=== PATIENT | male | born 1985 | race Hispanic/Latino ===

== ENCOUNTER → 2016-11-25 | Outpatient (CLI) | payer OTHER ==
--- NOTE | 2016-11-25 13:17 | DI ---
LUMBAR SPINE SERIES, 11/25/2016 11:45 AM: Clinical History: Sciatica. Previous Exam: None at this facility. 4 routine upright views and upright lateral flexion and extension views are submitted. The vertebral bodies are of normal height and size. The disc spaces are normal. The pedicles and posterior elements are unremarkable. Both SI joints are normal. Reading: Normal lumbar spine series.
--- NOTE | 2016-11-25 13:23 | DI ---
MRI LUMBAR SPINE SCAN WITHOUT IV CONTRAST, 11/25/2016 11:44 AM: Clinical History: Sciatica. Previous Exam: None. Technique: Sagittal and axial T2 weighted; sagittal T1 weighted and T2 STIR; and axial PD. The vertebral bodies are of normal height and size. There is disc space narrowing at L5-S1 and the re maining lumbar disc spaces are of normal height and signal pattern. There is desiccation change at L5 -S1. The cord terminates at T12 and the conus medullaris is normal. The T11-12 through L4-5 disc spac es are normal. L5-S1 has a left anterolateral bulging but not herniated disc that is associated with a disc annulus tear. There is no canal or neural foraminal stenosis. Readin. Left anterolateral bulging but not herniated disc without canal or neural foraminal stenosis at L 5-S1. There is also a disc annulus tear at the site of the bulging disc. 2. The disc spaces from T11-12 through L4-5 are normal.
== END ==
LOC: MRI 11:43
PROVIDERS: ATTEND Neurological Surgery
DX: M54.5 Low back pain (principal); M47.817 Spondylosis without myelopathy or radiculopathy, lumbosacral region
CPT/HCPCS: 72110; 72148